=== PATIENT | female | born 1955 | race Caucasian/White ===

== ENCOUNTER 2022-03-15 07:58 | Outpatient (RCR) | payer MEDICARE | END 2022-03-23 | LOC: OT 07:58 | PROVIDERS: ATTEND Specialist | DX: M75.81 Other shoulder lesions, right shoulder (principal) ==

== ENCOUNTER 2022-04-14 14:00 | Outpatient (RCR) | payer MEDICARE | END 2022-04-23 | LOC: PT 14:00 | PROVIDERS: ATTEND Specialist | DX: M25.551 Pain in right hip (principal); R10.31 Right lower quadrant pain ==

== ENCOUNTER → 2022-05-24 | Outpatient (RCR) | payer MEDICARE | LOC: PT 05-03 13:45 | PROVIDERS: ATTEND Specialist | DX: M25.551 Pain in right hip (principal); R10.31 Right lower quadrant pain ==

== ENCOUNTER 2022-06-14 13:55 | Outpatient (RCR) | payer MEDICARE | END 2022-06-23 | LOC: PT 13:55 | PROVIDERS: ATTEND Specialist | DX: M16.11 Unilateral primary osteoarthritis, right hip (principal); M70.61 Trochanteric bursitis, right hip; S76.211D Strain of adductor muscle, fascia and tendon of right thigh, subsequent encounter; R26.2 Difficulty in walking, not elsewhere classified ==